=== PATIENT | female | born 1940 | race Caucasian/White ===

== ENCOUNTER 2019-11-04 09:00 | Outpatient (CLI) | payer OTHER, SELFPAY ==
--- NOTE | 2019-11-09 11:43 | SLEEP_ITS ---
Home sleep test. DATE OF STUDY: 11/04/2019 ORDERING PHYSICIAN: Elijah Wilkins D.O. REASON FOR THE STUDY: Obstructive sleep apnea syndrome. HISTORY: This patient is a 79-year-old female, 5 feet tall, weighing 160 pounds with a body mass index of 31.2. She has atrial fibrillation. The patient has constant snoring that is occasionally loud enough that others complain about. She frequently awakens at night with heartburn, belching, or coughing. She occasionally awakens from sleep feeling short of breath. She frequently has trouble sleeping with a cold. She does not gasp for breath at night. She occasionally has breathing problems witnessed by others and occasionally sweats excessively at night. She frequently notices her heart pounding or beating irregularly at night. She frequently falls asleep during the day, but never involuntarily, never while driving, never during physical effort or with laughing or crying. She does not have loss of muscle tone with strong emotion. She does not have daytime difficulty due to excessive sleepiness. She is currently retired. She does not feel paralyzed on waking or falling asleep nor does she have vivid dreamlike scenes upon awakening or falling asleep. She is never afraid to go to sleep. She rarely has nightmares. She occasionally remembers her dreams. She frequently has racing thoughts. She does not feel sad or depressed. She rarely has anxiety. She frequently has muscular tension and notices parts of her body jerking. She rarely kicks at night. She frequently has crawling and aching feelings in her legs and has leg pain during the night. She never has morning jaw pain. She occasionally grinds her teeth at night. She frequently is bothered by pain during the day. She rarely is awakened by pain during the night. She constantly wakes up feeling stiff in the morning frequently with sore achy muscles and neck and spine pain. She has dizziness, fatigue, bowel disturbances, and takes antacids regularly. Bedtime is 9:30 p.m., typically waking 3 or 4 times at night to go to the bathroom and then has difficulty falling asleep again. If this happens, she will read a book or clean her house. She wakes in the morning at 6 a.m. Weekend schedule is the same. She estimates anywhere between 4 and 6 hours of sleep at night. If she does awaken at night, she will typically take 30-40 minutes to fall asleep again. Her excessive sleepiness does cause her to cut back on her social activities. She does take naps. A short nap can be refreshing. MEDICAL COMORBIDITIES: Arthritis, hypothyroidism, diabetes with retinopathy, seasonal allergies, bronchitis, gastroesophageal reflux disease, atrial fibrillation with rapid ventricular response, hyperlipidemia, pulmonary hypertension. MEDICATIONS: 1. Levothyroxine 50 mcg daily. 2. Albuterol inhaler p.r.n. shortness of breath. 3. Vitamin C 250 mg a day. 4. Azelastine 137 mcg 1 spray each nostril q.12 hours. 5. Vitamin D3 1000 units daily. 6. Coenzyme Q, 1 capsule daily. 7. Lasix 40 mg daily. 8. Aspart insulin as directed.. 9. Turmeric 450 mg daily. 10. Rivaroxaban 20 mg BID 11. Metformin 1000 mg daily. 12. Milk thistle, 1 capsule daily. 13. Multivitamin 1 daily. 14. Laporte-3 fatty acid 1 daily. HABITS: Smoked tobacco years ago. Two cups of coffee a day. No alcohol. DESCRIPTION OF THE STUDY: On the [place] Sleepiness Scale, is 7. This was conducted as an unattended type 3 portable home sleep test with 4-channel monitoring including respiratory effort channel, snoring channel, oxygen saturation channel, and heart rate channel. This study was scored using [facility] guidelines. Duration of the study was 8 hours 24 minutes. The apnea-hypopnea index is 14. Oxygen desaturation index
== END 2019-11-04 09:01 | disposition home or self-care (01) ==
LOC: ANHCSM 09:04
PROVIDERS: PCP Family Medicine; Visit Provider Internal Medicine Cardiovascular Disease
DX: G47.33 Obstructive sleep apnea (adult) (pediatric) (principal)
CPT/HCPCS: 95806

== ENCOUNTER 2019-11-11 08:18 | Outpatient (CLI) | payer OTHER, SELFPAY ==
--- NOTE | ~2019-11-11 | NM_ITS ---
EXAMINATION: NM duc stress w perfusion DATE: 11/11/2019 12:10 INDICATION: Chest pain TECHNIQUE: Rest images were obtained following intravenous administration of 9.8 mCi Tc99m tetrofosmi n (Myoview). The patient was infused intravenously with Lexiscan (Regadenoson). Then, 29.1 mCi Tc99m tetrofosmin (Myoview) was administered intravenously, and stress images were obtained. Data was recon structed into short axis and horizontal and vertical long axis SPECT images. Gated SPECT images were also obtained. COMPARISON: None. FINDINGS: There is no definite reversible or fixed perfusion abnormality to suggest ischemia or infar ction. There is normal left ventricular chamber size, wall motion and ejection fraction. Left ventr icular ejection fraction measures 62%. IMPRESSION: 1. Normal myocardial perfusion at rest and during stress. 2. Left ventricular ejection fraction measuring 62%. Reviewed, dictated and finalized at location A.
--- NOTE | 2019-11-11 09:41 | EST_ITS ---
Patient Info Name: Selina Fishman Age: 79 years : 1940 Gender: Female Ht: 60 in Wt: 163 lbs BSA: 1.80 m2 Exam Date: 11/11/2019 9:58 AM Exam Location: [facility] Stress Patient Status: Outpatient Admit Date: 11/11/2019 Staff Ordering Physician: Elijah Wilkins DO Attending Provider: Elijah Wilkins DO Exercise Technologist: Justyn Cornell RDCS, RT Exercise Physician: Elijah Wilkins DO Exam Type: CA stress duc w NM Study Info A regadenoson stress test was performed. Summary 1. 1. Inconclusive lexiscan stress test for ischemic ST changes by ECG criteria due to baseline LBBB. 2. 2. Baseline hypertension. 3. 3. Nuclear scan to follow and will be reported separately. Please correlate with it. 4. 4. Patient informed of the above results. Protocol: Lexiscan Stress ECG Details Stage: REST Duration (min): 5 min : 9 sec HR (bpm): 60 SBP (mmHg): 175 DBP (mmHg): 81 Stage: REST Duration (min): 6 min : 17 sec HR (bpm): 62 SBP (mmHg): 175 DBP (mmHg): 81 Stage: STAGE 1 Duration (min): 1 min : 0 sec HR (bpm): 69 SBP (mmHg): 177 DBP (mmHg): 65 Stage: RECOVERY Duration (min): 1 min : 0 sec HR (bpm): 75 SBP (mmHg): 177 DBP (mmHg): 65 Stage: RECOVERY Duration (min): 2 min : 0 sec HR (bpm): 74 SBP (mmHg): 177 DBP (mmHg): 65 Stage: RECOVERY Duration (min): 3 min : 0 sec HR (bpm): 72 SBP (mmHg): 177 DBP (mmHg): 65 Stage: RECOVERY Duration (min): 3 min : 24 sec HR (bpm): 71 SBP (mmHg): 175 DBP (mmHg): 65 Rest HR: 62 bpm Peak HR: 76 bpm Rest Sys BP: 175 mmHg Peak Sys BP: 177 mmHg Max Pred HR: 142 bpm % Max Pred HR: 54 % Target HR: 121 bpm Max RPP: 13,452 bpm*mmHg Termination Reason: Completed protocol Cardiac Symptoms: Shortness of breath Total Time: 1 min : 0 sec Rest Rodriguez BP: 81 mmHg Peak Rodriguez BP: 65 mmHg Total Dose: 0.4 mg Resting ECG Sinus rhtyhm with LBBB. Stress ECG No ST changes. Arrhythmias None. Report Signatures
== END 2019-11-11 08:19 | disposition home or self-care (01) ==
PROVIDERS: PCP Family Medicine; Visit Provider Internal Medicine Cardiovascular Disease
DX: R07.9 Chest pain, unspecified (principal)
CPT/HCPCS: 78452; 93017; A9502; J2785

== ENCOUNTER 2020-01-25 15:23 | Outpatient (CLI) | payer OTHER, SELFPAY ==
--- NOTE | ~2020-01-25 | CT_ITS ---
EXAMINATION: CT abdomen pelvis w con EXAM DATE: 01/25/2020 16:19 INDICATION: Left lower quadrant pain. TECHNIQUE: Spiral CT of the abdomen and pelvis was performed following intravenous injection of 100 m L Omnipaque 350. Axial, coronal and sagittal images were reviewed. The dose-length product (DLP) fo r this examination was 900.34 mGy-cm. The exposure was tailored according to patient size (auto mA e xposure control), and iterative reconstruction (ASIR) was used as additional dose reduction technique . Comparison is made to prior examination from 01/06/2018. FINDINGS: There is a left adrenal lesion measuring 4.1 cm with small regions of macroscopic fat, cons istent with myelolipoma unchanged. Liver, spleen, right adrenal gland, pancreas are unremarkable. Th ere are cholecystectomy clips. Portal and splenic veins are patent. Kidneys enhance symmetrically. There is no hydronephrosis. There is a 4 mm right inferior calyceal stone. The uterus is not identi fied and has likely been surgically resected. The bladder is unremarkable. There is no retroperiton eal or pelvic lymphadenopathy. There is mild scattered arteriosclerotic disease. There is anterior abdominal wall mesh. The appendix is not positively visualized. There is no pericecal inflammatory change to suggest appe ndicitis. The stomach and small bowel are unremarkable. There is mild sigmoid colonic diverticulosi s. There is no adjacent inflammatory change to suggest diverticulitis. No free intraperitoneal gas. There is cardiomegaly and mild basilar bronchiectasis. Mild basilar intralobular septal thickening , edema versus interstitial lung disease. This is more pronounced than on previous exam. There are n o osteoblastic or osteolytic lesions identified. IMPRESSION: 1. No acute intra-abdominal findings. 2. Left adrenal myelolipoma. 3. Right nephrolithiasis. 4. Mild sigmoid diverticulosis. 5. Mild cardiomegaly. 6. Mild basilar fibrosis and/or pulmonary edema. Reviewed, dictated and finalized at location A.
[2020-01-25 16:13] LABS: Estimated Glomerular Filt Rate > 60
== END 2020-01-25 15:24 | disposition home or self-care (01) ==
PROVIDERS: PCP Family Medicine; Visit Provider Family Medicine
DX: R10.32 Left lower quadrant pain (principal); D17.79 Benign lipomatous neoplasm of other sites; N20.0 Calculus of kidney; K57.90 Diverticulosis of intestine, part unspecified, without perforation or abscess without bleeding; I51.7 Cardiomegaly; R91.8 Other nonspecific abnormal finding of lung field
CPT/HCPCS: 36415; 74177; Q9967

== ENCOUNTER 2020-05-03 00:45 | Outpatient (CLI) | payer OTHER, SELFPAY ==
[2020-05-03 17:26] LABS: SARS-CoV-2 RNA PCR Negative
== END 2020-05-03 00:46 | disposition home or self-care (01) ==
LOC: ANHCOVIDDT 00:45
PROVIDERS: PCP Family Medicine; Visit Provider Internal Medicine Critical Care Medicine
DX: Z20.828 Contact with and (suspected) exposure to other viral communicable diseases (principal)
CPT/HCPCS: 87635; C9803; U0003

== ENCOUNTER 2020-05-05 07:07 | Outpatient (CLI) | payer OTHER, SELFPAY ==
--- NOTE | 2020-05-22 21:12 | WPDSLEEPSTUD ---
Sleep Study Date of Study: 05/05/20 Ordering Provider: Elijah Wilkins DO Interpreting Physician: Rosangela Woods MD Sleep Study Type: CPAP Titration Height: 1.52 m Weight: 72.575 kg Body Mass Index: 31.2 [place]: 9 Reason for Sleep Study Prior home sleep test 11/04/2019 with moderate obstructive sleep apnea Sleep History Sleep complaints include constant snoring that is occasionally loud enough that others complain about; she frequently awakens at night with heartburn, belching, and coughing. She occasionally awakens from sleep feeling short of breath, frequently has trouble sleeping with a cold. She does not gasp for breath at night. She occasionally has breathing problems witnessed by others and occasionally sweats excessively at night. She frequently notices her heart pounding or beating irregularly at night. She frequently falls asleep during the day, but never involuntarily, never while driving, never during physical effort or with laughing or crying. She does not have loss of muscle tone with strong emotion. She does not have daytime difficulty due to excessive sleepiness. She is currently retired. She does not feel paralyzed on waking or falling asleep nor does she have vivid dreamlike scenes upon awakening or falling asleep. She is never afraid to go to sleep; rarely has nightmares. She occasionally remembers her dreams. She frequently has racing thoughts. She does not feel sad or depressed. She rarely has anxiety. She frequently has muscular tension and notices parts of her body jerking. She rarely kicks at night. She frequently has crawling and aching feelings in her legs and has leg pain during the night. She never has morning jaw pain. She occasionally grinds her teeth at night. She frequently is bothered by pain during the day. She rarely is awakened by pain during the night. She constantly wakes up feeling stiff in the morning frequently with sore achy muscles and neck and spine pain. She has dizziness, fatigue, bowel disturbances, and takes antacids regularly. Bedtime is 9:30 p.m., typically waking 3 or 4 times at night to go to the bathroom and then has difficulty falling asleep again. If this happens, she will read a book or clean her house. She wakes in the morning at 6 a.m. Weekend schedule is the same. She estimates anywhere between 4 and 6 hours of sleep at night. If she does awaken at night, she will typically take 30-40 minutes to fall asleep again. Her excessive sleepiness does cause her to cut back on her social activities. She does take naps. A short nap can be refreshing. Habits: Smoked tobacco years ago. Two cups of coffee a day. No alcohol. PMFSH Past Medical History Medical History Adult hypothyroidism Atherosclerosis of [place] coronary artery of creek heart without angina pectoris Atrial fibrillation with RVR Essential (primary) hypertension Insulin long-term use Lumbar spondylosis Macular degeneration, dry Mild nonproliferative diabetic retinopathy of both eyes Mitral regurgitation and aortic stenosis Mixed hyperlipidemia AUTUMN (obstructive sleep apnea) Proteinuria due to type 2 diabetes mellitus Pulmonary HTN Type 2 diabetes mellitus with diabetic polyneuropathy Surgical History Surgical History History of fusion of cervical spine History of hysterectomy History of lumbar fusion History of tonsillectomy Family History Family History Mother Family history of transient ischemic attacks Family history of diabetes mellitus in first degree relative Patient's mother is Sibling Family history of lymphoma Family history of congestive heart failure, Onset Age: 40 Family history of heart disease in male family member before age 55 Social History Social History Smoking
[2020-05-22 22:37] VITALS: BMI 31.2
== END 2020-05-05 07:08 | disposition home or self-care (01) ==
LOC: ANHCSM 07:08
PROVIDERS: PCP Family Medicine; Visit Provider Internal Medicine Cardiovascular Disease
DX: G47.33 Obstructive sleep apnea (adult) (pediatric) (principal); I47.1 Supraventricular tachycardia; Z68.31 Body mass index [BMI] 31.0-31.9, adult
CPT/HCPCS: 95811

== ENCOUNTER 2020-06-22 14:30 | Outpatient (RCR) | payer OTHER, SELFPAY ==
[2020-04-19 08:04] VITALS: BMI 29.4
== END 2020-07-04 14:04 | disposition home or self-care (01) ==
LOC: ANHDMC 14:30
PROVIDERS: PCP Family Medicine; Visit Provider Family Medicine
DX: E11.42 Type 2 diabetes mellitus with diabetic polyneuropathy (principal); E11.65 Type 2 diabetes mellitus with hyperglycemia; Z71.3 Dietary counseling and surveillance; Z71.89 Other specified counseling
CPT/HCPCS: 97802; G0108; G0109

== ENCOUNTER 2020-10-17 10:15 | Outpatient (RCR) | payer OTHER, SELFPAY | END 2020-10-18 07:58 | disposition home or self-care (01) | LOC: ANHDMC 10:15 | PROVIDERS: PCP Family Medicine; Visit Provider Family Medicine | DX: E11.42 Type 2 diabetes mellitus with diabetic polyneuropathy (principal); E11.65 Type 2 diabetes mellitus with hyperglycemia; Z71.89 Other specified counseling | CPT/HCPCS: G0108; G0109 ==

== ENCOUNTER → 2020-10-21 09:45 | Outpatient (CLI) | payer OTHER, SELFPAY ==
[2020-10-22 19:48] LABS: SARS-CoV-2 RNA PCR Negative
== END ==
PROVIDERS: PCP Family Medicine; Visit Provider Physician Assistant
DX: R68.89 Other general symptoms and signs (principal); Z20.822 Contact with and (suspected) exposure to COVID-19
CPT/HCPCS: C9803; U0003; U0005

== ENCOUNTER 2020-12-05 11:00 | Outpatient (RCR) | payer OTHER, SELFPAY ==
--- NOTE | 2020-11-04 09:32 | PTOPEVAL ---
Thank you for referring Selina Fishman to [facility].? The patient is scheduled to be seen for therapy? 2x/week for 5 weeks. Please review, sign, date and return this plan of care ERICA. I agree with and certify that the following plan of care is medically necessary. Referring Physician Date Attending Provider: Sharad Ram MD Physical Therapy evaluation Problem Diagnosis left knee pain Onset Aug 2020 Cause progression of OA Additional Evaluation Detail She had a fall in Sep in the snow. She reports balance issues for a long time. She has nevere been treated for the balance issue. She reports 4 falls in the last 6 months. The falls will happen with turning and others are a controlled fall using an object to assist with the fall . Subjective Information She reports her left knee pain Query Text:As Reported By Patient/ increased in Aug for unknown Family reason. She has increased pain and difficulty with any walking, distance walking, negotiating steps, ADL's, precision lathe operator, on/off any surfaces. Notes pain to sharp on the medial/inferior aspect. As well as ache pain. She reports her pain level varies each day. She c/o swelling of the knee with prolonged standing or standing activities. She will have times without pain when seated watching TV. She has been using a cane at home and community with improved pain. She was performing home exercise videos but stopped in Jul due to overall body pain with the program. She was performing a [employer] program but stopped due to not feeling well. Diagnostic Tests X-Rays For This Problem Yes: mild medial joint space narrowing with peripheral spur formation, Previous Treatments Previous Treatments For This Problem nothing recently Pain Assessment
--- NOTE | 2020-11-08 15:31 | PCPTNOTE ---
Patient showed up for apt this date. When approached to come back to gym, patient informed therapist she does not feel well today and notes she received her 2nd covid shot yesterday and has no energy. Patient looked pale and like she did not feel well. Cancelled apt this date to allow patient to rest and for patient safety purposes. Re issued patient exercise handouts as she reported she lost them.
--- NOTE | 2020-12-05 11:47 | PCPTNOTE ---
Admitting Provider: Attending Provider: Sharad Ram MD Patient:Selina Fishman Date of :1940 Discharge Note Patient has attended 9 therapy visits from 11/04/20 to 12/05/20 with 1 missed visits. She has improved knee motion to 130 deg, improved nadine leg strength, improved tolerance with walking and standing. She is indep with her home exercise at this time. The goals have been partially met at this time. She has reached maximal potential with skilled therapy services at this time. Will D/C skilled therapy at this time. Thank you for referring this patient to [facility]. Please review, sign, date and return this discharge summary ERICA. I have been updated about the patient's current status and I agree with discharge from the above service at this time. Referring Physician Date
== END 2020-12-06 08:12 | disposition home or self-care (01) ==
LOC: ANHPT 11:00
PROVIDERS: PCP Family Medicine; Visit Provider Orthopaedic Surgery
DX: M17.12 Unilateral primary osteoarthritis, left knee (principal)
CPT/HCPCS: 97110; 97116; 97162

== ENCOUNTER 2020-12-23 11:02 | Emergency (ER) | payer OTHER, SELFPAY ==
[2020-12-23] VITALS (20 sets, daily range): BP systolic 145–185; BP diastolic 59–128; PULSE 66–88; RESP 12–25; TEMP 36.2; O2SAT 93–96
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
--- NOTE | ~2020-12-23 | XR_ITS ---
EXAMINATION: XR chest 1V INDICATION: Chest pain TECHNIQUE: AP view of the chest is obtained. COMPARISON: 09/24/2016 FINDINGS: The lungs are free of acute opacities. There is no pleural effusion or pneumothorax. Cardio megaly is noted. IMPRESSION: 1. No acute cardiopulmonary abnormality. Reviewed, dictated and finalized at location A.
--- NOTE | ~2020-12-23 | CT_ITS ---
EXAMINATION: CT brain wo con INDICATION: Headache COMPARISON: None TECHNIQUE: Standard unenhanced head CT. The dose-length product (DLP) was 605.33 mGy-cm. The mA was a djusted according to patient size. Iterative reconstruction technique was employed. FINDINGS: There is no acute intraparenchymal hemorrhage. No evidence of mass lesion. No evidence of a cute infarction. There is mild periventricular and subcortical hypodensity probably related to small vessel ischemic disease. There is mild prominence of the sulci and ventricles related to cerebral atr ophy. Intracranial calcified cerebral atherosclerosis is noted. There are no extra-axial collections. There is no mass effect or midline shift. Changes in the globes are likely from ocular lens surgery. There is mild mucosal thickening of the paranasal sinuses. IMPRESSION: 1. No acute intracranial abnormality. 2. Age related findings. Reviewed, dictated and finalized at location A.
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
[2020-12-23 12:10] LABS: Basophils Percent Auto 0.3 % (0.2-1.2); Eosinophils Absolute Auto 0.1 K/mm3 (0-0.3); Eosinophils Percent Auto 0.4 % (0-4.4); Hematocrit 44.6 % (37.0-47.0); Hemoglobin 15.1 g/dL (12.0-15.0); Immature Granulocyte Absolute 0.07 K/mm3 (0.00-0.031); Immature Granulocyte Percent A 0.6 % (0-0.5); Lymphocytes Absolute Auto 1.57 K/mm3 (0.9-3.2); Lymphocytes Percent Auto 13.6 % (18.3-44.2); Mean Corpuscular HGB Conc 33.9 g/dl (32-36); Mean Corpuscular Hemoglobin 30.1 pg (26-34); Mean Corpuscular Volume 88.8 fl (80-100); Mean Platelet Volume 10.7 fl (7.4-10.4); Monocytes Absolute Auto 0.7 K/mm3 (0.1-0.6); Monocytes Percent Auto 6.2 % (2.6-8.5); Neutrophils Absolute Auto 9.1 K/mm3 (1.3-6.7); Neutrophils Percent Auto 78.9 % (45.5-73.1); Platelet Count Result 307 k/mm3 (150-375); Red Blood Count 5.02 M/mm3 (4.2-5.4); Red Cell Distribution Width 13.1 % (11.5-14.5); White Blood Count 11.6 K/mm3 (4.5-10.0)
[2020-12-23 12:15] LABS: Potassium 3.2 mmol/L (3.4-5.0)
[2020-12-23 12:22] LABS: Anion Gap 9 mmol/L (8-16); Blood Urea Nitrogen 14 mg/dL (7-17); Carbon Dioxide 29 mmol/L (22-30); Chloride 96 mmol/L (98-107); Estimated CRCL calculation 61 ml/min; Estimated Glomerular Filt Rate > 60; Glucose 478 mg/dL (65-105); Sodium 134 mmol/L (137-145)
[2020-12-23 13:19] LABS: Add Urine Microscopic? YES; Appearance Urine Clear (Clear); Bilirubin Urine Negative (Negative); Blood Urine Negative (Negative); Color Urine Yellow (Yellow); Glucose Urine UA 3+ mg/dL (Negative); Ketones Urine 1+ mg/dL (Negative); Leukocyte Esterase Ur Negative LEU/UL (Negative); Nitrate Urine Negative (Negative); Protein Urine Negative (Negative); Squamous Epithelial Cell Urine Rare /hpf (Few); Urobilinogen Urine Negative mg/dL (<2.0)
[2020-12-23] MEDS: SODIUM CHLORIDE 0.9% IV 1,000 ML 999 ML IV CONT (13:19)
[2020-12-23 13:20] LABS: Specific Grav Ur 1.033 (1.001-1.035)
[2020-12-23] MEDS: INSULIN HUMAN REGULAR (*BKC) 100 UNITS/ML 12 UNITS SUB-Q (14:19)
[2020-12-23 14:24] LABS: Glucose Point of Care 442 (65-105)
[2020-12-23 15:44] LABS: Glucose Point of Care 425 (65-105)
== END 2020-12-23 14:57 | disposition home or self-care (01) ==
PROVIDERS: Emergency Medicine Emergency Medical Services; Emergency Provider Emergency Medicine; PCP Family Medicine
DX: S00.83XA Contusion of other part of head, initial encounter (principal); E11.65 Type 2 diabetes mellitus with hyperglycemia; E11.42 Type 2 diabetes mellitus with diabetic polyneuropathy; E11.3293 Type 2 diabetes mellitus with mild nonproliferative diabetic retinopathy without macular edema, bilateral; H35.3190 Nonexudative age-related macular degeneration, unspecified eye, stage unspecified; I48.91 Unspecified atrial fibrillation; I25.10 Atherosclerotic heart disease of native coronary artery without angina pectoris; I10 Essential (primary) hypertension; I08.0 Rheumatic disorders of both mitral and aortic valves; E78.2 Mixed hyperlipidemia; E03.9 Hypothyroidism, unspecified; G47.33 Obstructive sleep apnea (adult) (pediatric); M17.12 Unilateral primary osteoarthritis, left knee; I27.20 Pulmonary hypertension, unspecified; Z79.4 Long term (current) use of insulin; Z79.01 Long term (current) use of anticoagulants; M47.812 Spondylosis without myelopathy or radiculopathy, cervical region; V49.50XA Passenger injured in collision with unspecified motor vehicles in traffic accident, initial encounter; R82.998 Other abnormal findings in urine
CPT/HCPCS: 36415; 70450; 71045; 72125; 80048; 81001; 82948; 85025; 87086; 87088; 96360; 99284; J1815; J7030

== ENCOUNTER 2021-06-03 16:23 | Emergency (ER) | payer OTHER, SELFPAY ==
--- NOTE | ~2021-06-03 | CT_ITS ---
EXAMINATION: CT brain wo con DATE: 06/03/2021 18:45 INDICATION: Confusion. Agitation. TECHNIQUE: Computed tomography (CT) of the head was performed without intravenous contrast. The mA wa s adjusted according to patient size. Iterative reconstruction technique was employed. The dose-lengt h product was 605.33 mGy-cm. COMPARISON: Head CT 12/23/2020 FINDINGS: There are scattered areas of low attenuation in the cerebral white matter. There is no intr acranial hemorrhage, acute infarction, or abnormal intracranial mass lesion. There are old lacunar in farcts in the bilateral caudate nuclei. The ventricles are normal in size. There is mild mucosal thic kening in the paranasal sinuses. There are likely changes of ocular lens replacement surgeries. The m astoid air cells are normal. IMPRESSION: 1. 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 2. Stable moderate nonspecific cerebral white matter disease, which likely represents chronic small v essel ischemic disease. Reviewed, dictated and finalized at location A. IMPRESSION: 1. 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 2. Stable moderate nonspecific cerebral white matter disease, which likely repr esents chronic small vessel ischemic disease.
--- NOTE | 2021-06-03 16:25 | ECG_ITS ---
Measurements Intervals Amonate Rate: 86 P: 86 [place]: 193 QRS: -41 QRSD: 122 T: 138 QT: 388 QTc: 467 Interpretive Statements SINUS RHYTHM LEFT AXIS DEVIATION INTRAVENTRICULAR CONDUCTION DELAY LEFT VENTRICULAR HYPERTROPHY AND ST-T CHANGE ANTEROSEPTAL INFARCT, AGE INDETERMINATE BASELINE ARTIFACT- I, II, AVR ABNORMAL ECG Electronically Signed On 06-03-2021 17:51:45 CDT by Elijah Wilkins D.O.
--- NOTE | 2021-06-03 16:31 | ED.AMS ---
HPI - Altered Mental Status General Chief Complaint: Altered Mental Status Stated Complaint: AMS - onset Time Seen by Provider: 06/03/21 16:30 Source: patient, family and RN notes reviewed Mode of arrival: ambulatory Limitations: no limitations History of Present Illness HPI narrative: Patient 80 years old white female brought to the emergency by her daughter because of sudden onset of confusion and agitation lasted for few minutes and then resolved. Patient had similar symptoms 2 to 3 weeks ago. Currently patient is awake, alert and oriented x4, denying any symptoms. Patient denies any fever, chills, nausea, vomiting, diarrhea, constipation, abdominal pain, chest pain, shortness of breath, headache. Patient is fully vaccinated for COVID-19. Related Data Home Medications Medication Instructions Recorded Confirmed omega-3 fatty acids 1,000 mg 2,000 mg PO DAILY cap 01/13/21 05/19/21 capsule cetirizine 10 mg tablet 10 mg PO DAILY PRN 04/13/21 05/19/21 fluticasone propionate 50 1 spray INTRANASAL BID 04/13/21 05/19/21 mcg/actuation nasal spray,suspension Allergies Allergy/AdvReac Type Severity Reaction Status Date / Time codeine Allergy Unknown hives Verified 06/03/21 16:57 gabapentin Allergy Unknown rash Verified 06/03/21 16:57 meperidine Allergy Unknown hives Verified 06/03/21 16:57 Quinolones Allergy Unknown N/V Verified 06/03/21 16:57 Sulfa (Sulfonamide Allergy Unknown Unknown Verified 06/03/21 16:57 Antibiotics) Review of Systems Review of Systems: CONSTITUTIONAL: Denies fever, chills, or sweats. EYES: Denies visual changes, redness, or discharge. ENT: Denies rhinorrhea, congestion, sore throat, or otalgia. CARDIOVASCULAR: Denies chest pain, palpitations, or edema. RESPIRATORY: Denies cough or dyspnea. GASTROINTESTINAL: Denies abdominal pain, nausea, vomiting, or diarrhea. GENITOURINARY: Denies dysuria or hematuria. SKIN: Denies rash or itching. MUSCULOSKELETAL: Denies back pain, joint pain, or myalgia. NEUROLOGIC: Denies headache, numbness, or weakness. PSYCHIATRIC: Denies anxiety or depression. [facility] Past Medical History Medical History Adult hypothyroidism Atherosclerosis of [place] coronary artery of [place] heart without angina pectoris Atrial fibrillation with RVR Diastolic dysfunction Essential (primary) hypertension Hemoglobin A1c greater than 9.0% over august 2020 History of tobacco abuse Insulin long-term use Lumbar spondylosis Macular degeneration, dry Major depressive disorder, single episode, moderate Mild nonproliferative diabetic retinopathy of both eyes Mitral regurgitation and aortic stenosis Mixed hyperlipidemia Myelolipoma of left adrenal gland AUTUMN (obstructive sleep apnea) (~10/2019) Osteoarthritis of left knee Proteinuria due to type 2 diabetes mellitus Pulmonary HTN Recurrent kidney stones Type 2 diabetes mellitus with diabetic polyneuropathy Surgical History Surgical History History of fusion of cervical spine History of hysterectomy History of lumbar fusion History of tonsillectomy Family History Family History Mother Family history of transient ischemic attacks Family history of diabetes mellitus in first degree relative Patient's mother is Sibling Family history of lymphoma Family history of congestive heart failure, Onset Age: 40 Family history of heart disease in male family member before age 55 Social History Social History Social History: Smoking packs per day: 1 Smoking cigarettes per day: 20.0 Years smoked: 16 Smoking pack-years: 16.00 Smoking status: Former smoker Tobacco type: cigarettes Second hand tobacco smoke exposure: No Smoking end date: 08/19/75 Alcohol intake: never Substance use: never
[2021-06-03 16:41] LABS: Basophils Percent Auto 0.4 % (0.2-1.2); Eosinophils Absolute Auto 0.1 K/mm3 (0-0.3); Eosinophils Percent Auto 1.1 % (0-4.4); Hematocrit 47.5 % (37.0-47.0); Hemoglobin 15.9 g/dL (12.0-15.0); Immature Granulocyte Absolute 0.06 K/mm3 (0.00-0.031); Immature Granulocyte Percent A 0.5 % (0-0.5); Lymphocytes Absolute Auto 3.31 K/mm3 (0.9-3.2); Lymphocytes Percent Auto 29.3 % (18.3-44.2); Mean Corpuscular HGB Conc 33.5 g/dl (32-36); Mean Corpuscular Hemoglobin 30.3 pg (26-34); Mean Corpuscular Volume 90.6 fl (80-100); Mean Platelet Volume 10.6 fl (7.4-10.4); Monocytes Absolute Auto 0.7 K/mm3 (0.1-0.6); Monocytes Percent Auto 5.9 % (2.6-8.5); Neutrophils Absolute Auto 7.1 K/mm3 (1.3-6.7); Neutrophils Percent Auto 62.8 % (45.5-73.1); Platelet Count Result 340 k/mm3 (150-375); Red Blood Count 5.24 M/mm3 (4.2-5.4); White Blood Count 11.3 K/mm3 (4.5-10.0)
[2021-06-03 16:42] VITALS: BP 177/106; PULSE 86; RESP 14; TEMP 36.3; O2SAT 99
[2021-06-03 17:14] LABS: Alanine Aminotransferase 17 U/L (4-35); Albumin Level 4.6 g/dL (3.5-5.1); Alkaline Phosphatase 78 U/L (38-126); Anion Gap 14 mmol/L (8-16); Aspartate Amino Transferase 22 U/L (14-36); Bilirubin,Total 0.4 mg/dL (0.2-1.3); Blood Urea Nitrogen 10 mg/dL (7-17); Calcium 9.5 mg/dL (8.4-10.2); Carbon Dioxide 27 mmol/L (22-30); Chloride 94 mmol/L (98-107); Estimated CRCL calculation 70 ml/min; Estimated Glomerular Filt Rate > 60; Glucose 453 mg/dL (65-110); Sodium 135 mmol/L (137-145)
[2021-06-03 17:18] VITALS: BP 121/99; PULSE 77; RESP 14; O2SAT 97
[2021-06-03 17:41] LABS: Add Urine Microscopic? YES; Appearance Urine Clear (Clear); Bacteria Urine Trace /hpf; Bilirubin Urine Negative (Negative); Blood Urine Negative (Negative); Color Urine Colorless (Yellow); Glucose Urine UA 3+ mg/dL (Negative); Ketones Urine Trace mg/dL (Negative); Leukocyte Esterase Ur Negative LEU/UL (Negative); Mucus Urine Rare /lpf; Nitrate Urine Negative (Negative); Protein Urine Negative (Negative); Squamous Epithelial Cell Urine Rare /hpf (Few); Urobilinogen Urine Negative mg/dL (<2.0); WBC Urine 0-3 /hpf
[2021-06-03 18:42] VITALS: BP 139/110; PULSE 73; RESP 16; O2SAT 97
[2021-06-03] MEDS: POTASSIUM CHLORIDE 20 MEQ PACKET (FOR LIQUID) 40 MEQ PO (18:52)
[2021-06-03] MEDS: SODIUM CHLORIDE 0.9% IV 1,000 ML 999 ML IV CONT (18:53)
[2021-06-03 19:01] LABS: Magnesium 1.6 mg/dL (1.6-2.3); Phosphorus 3.3 mg/dL (2.5-4.5)
[2021-06-03 19:01] LABS: Alveolar/Arterial O2 Gradient 32.5 mmHg; Base Excess ABG 1.1 mEq/l (+/-2.0); Carboxyhemoglobin 0.9 % THb (0-2.0); Fractional Inspired Oxygen 21 %; HCO3 ABG 23.4 mEq/l (22.0-26.0); Methemoglobin ABG 0.2 %THb (0-1.5); Oxygen Content ABG 19.1 %vol (16.0-22.0); Oxygen Saturation ABG 96.8 % (95.0-100.0); Oxyhemoglobin 94.8 % THb (90.0-100.0); PCO2 ABG 30.9 mmHg (35.0-45.0); PO2 ABG 80.2 mmHg (80.0-100.0); PO2 FiO2 Ratio Arterial Blood 3.82 %; Reduced Hemoglobin 4.1 %THb (0-5.0); Total Hemoglobin 14.3 g/dL (12.0-18.0); pH ABG 7.498 (7.350-7.450)
[2021-06-03 19:02] LABS: Device ROOM AIR; Modified Allen's Test Pass; Site Drawn RIGHT RADIAL
[2021-06-03 19:06] LABS: Beta-Hydroxybutyrate/Acetoacetate 0.36 mmol/L (0.02-0.27)
[2021-06-03] MEDS: INSULIN HUMAN REGULAR (*BKC) 100 UNITS/ML 10 UNITS IV PUSH (20:31)
[2021-06-03 20:32] VITALS: BP 187/85; PULSE 85; RESP 22; O2SAT 99
[2021-06-03 21:09] LABS: Glucose Point of Care 219 mg/dl (65-105)
--- NOTE | 2021-06-14 10:53 | PC.NURSE ---
LATE ENTRY This note is being entered to document information to the patient's record. The following information was omitted on [06/03/21], by [Michele Smith RN]. NS stop time 1954.
== END 2021-06-03 22:01 | disposition home or self-care (01) ==
PROVIDERS: Emergency Medicine; Emergency Provider Emergency Medicine; PCP Family Medicine
DX: E11.65 Type 2 diabetes mellitus with hyperglycemia (principal); E87.6 Hypokalemia; I25.10 Atherosclerotic heart disease of native coronary artery without angina pectoris; I11.0 Hypertensive heart disease with heart failure; I50.30 Unspecified diastolic (congestive) heart failure; I08.0 Rheumatic disorders of both mitral and aortic valves; E78.2 Mixed hyperlipidemia; I27.20 Pulmonary hypertension, unspecified; Z87.442 Personal history of urinary calculi; E11.42 Type 2 diabetes mellitus with diabetic polyneuropathy; H35.3190 Nonexudative age-related macular degeneration, unspecified eye, stage unspecified; E03.9 Hypothyroidism, unspecified; G47.33 Obstructive sleep apnea (adult) (pediatric); M17.12 Unilateral primary osteoarthritis, left knee; Z98.1 Arthrodesis status; Z87.891 Personal history of nicotine dependence; Z79.4 Long term (current) use of insulin; R90.82 White matter disease, unspecified; I45.9 Conduction disorder, unspecified; R94.31 Abnormal electrocardiogram [ECG] [EKG]; I51.7 Cardiomegaly
CPT/HCPCS: 36415; 36600; 70450; 80053; 81001; 82010; 82375; 82805; 82948; 83050; 83735; 84100; 85025; 93005; 96361; 96374; 99284; A9270; J1815; J7030

== ENCOUNTER 2021-07-04 14:00 | Outpatient (RCR) | payer OTHER, SELFPAY ==
--- NOTE | 2021-06-01 12:07 | PTOPEVAL ---
INITIAL PHYSICAL THERAPY EVALUATION and PLAN OF CARE Thank you for referring Selina Fishman to [facility] [place].? Selina is scheduled to be seen for physical therapy? 2x/week for 4 weeks. Please review, sign, date and return this plan of care ERICA. I agree with and certify that the following plan of care is medically necessary. Referring Physician Date Admitting Provider: Attending Provider: Nena Garcia PA-C Referring Provider: ThomasPT Outpatient Evaluation Start: 06/01/21 10:33 Freq: Status: Active Protocol: Document 06/01/21 10:34 CARLOS (Rec: 06/01/21 12:06 CARLOS [id number]) Therapy Assessment Status Assessment Status Assessment Status Evaluation Outpatient Past Medical History Past Medical History Source of Past Medical History Recalled from Previous Visit, Confirmed with Patient/Family Neurological History Hx Cerebrovascular Accident (CVA) Yes: 1982 Cardiovascular History Hx Atrial Fibrillation Yes Hx Cardiac Catheterization Yes Hx Hypercholesterolemia Yes Hx Hypertension Yes Respiratory History Hx Bronchitis Yes Hx Chronic Obstructive Pulmonary Disease Yes (COPD) Hx Pneumonia Yes Hx Sleep Apnea Yes Gastrointestinal History Hx Gastroesophageal Reflux Disease Yes Genitourinary History Hx Kidney Stones Yes Musculoskeletal History Hx Arthritis Yes Hx Back Pain Yes Hx Fractures Yes: left elbow fracture Hx Orthopedic Surgery Yes: left elbow Hematological History Hx Hematological Disorders No Significant History Endocrine History Hx Diabetes Yes HEENT History Hx Cataracts Yes Hx Macular Degeneration Yes Hx Sinus Problems Yes Hx Deviated Septum Yes Integumentary History Hx Shingles Yes Psychosocial History Hx Psychiatric Disorders No Significant History Pain History History of Any Previous or Ongoing No Significant History Instance of Pain Anesthesia History Hx Anesthesia Reactions No Significant History Evaluation Information Problem Diagnosis unspecific abnormalities of gait & mobility,chronic pain syndrome,L knee OA Onset ongoing - worsening in March Additional Evaluation Detail evidently increased difficulty getting initial evaluation scheduled Subjective Information Selina reports receiving Query Text:As Reported By Patient/ some relief of L knee pain Family with PT earlier this year.
--- NOTE | 2021-07-04 15:12 | PTOPEVAL ---
PHYSICAL THERAPY DISCHARGE SUMMARY Thank you for referring Selina Fishman to [facility] [place][Note 2].? Selina completed 7 visits in PT. She did meet improved pelvic symmetry, centralization of R LE pain, and L hip flexor flexibility goals but did not meet strength or functional ability goals. She is at end point with PT at this time. She is independent with her HEP and she was encouraged to continue to perform it on a regular basis. I agree with Selina's discharge from PT. Referring Physician Date Admitting Provider: Attending Provider: Nena Garcia PA-C Referring Provider: Therapy Assessment Status Assessment Status Assessment Status Discharge Evaluation Information Problem Diagnosis unspecific abnormalities of gait & mobility,chronic pain syndrome,L knee OA Subjective Information Selina reports that some Query Text:As Reported By Patient/ mornings she wakes up and Family thinks everything is fine. But then once she gets moving around she has increased discomfort. Still limited with shopping distances and time frames. Still avoiding stairs due to pain R buttock and L knee. Selina reports that she feels more limited by her R buttock pain than her L knee pain. Reports doing HEP at home. Pain Assessment Timing of Pain Assessment Timing of Pain Assessment Assessment Pain Scale Pain Scale Used Numeric (1 - 10) Self Report Pain Assessment Right Buttock(s) Reported Pain Level 5 Lowest Pain Intensity 3 Greatest Pain Intensity 8 Pain Aggravating Factors Walking,Weight Bearing/ Standing Left Knee(s) Reported Pain Level 4 Lowest Pain Intensity 3 Greatest Pain Intensity 8 Lower Extremity Muscle Strength Testing Hip Strength Right Hip Flexion Strength 3+ Fair + Hip Extension Strength 4 Good Hip Abduction Strength 3 Fair Hip Medial Rotation Strength 4+ Good + Hip Lateral Rotation Strength 4+ Good + Left Hip Flexion Strength 4- Good - Hip Extension Strength 4 Good Hip Abduction Strength 3+ Fair + Hip Medial Rotation Strength 4+ Good + Hip Lateral Rotation Strength 4 Good Knee Strength Right Knee Flexion Strength 4+ Good + Knee Extension Strength 4+ Good + Left Knee Flexion Strength 4+ Good + Knee Extension Strength 5 Normal Muscle Length Testing Muscle Length Testing Muscle Length Testing C
== END 2021-07-05 11:17 | disposition home or self-care (01) ==
LOC: ANHPT 14:00
PROVIDERS: PCP Family Medicine; Visit Provider Physician Assistant
DX: M17.12 Unilateral primary osteoarthritis, left knee (principal); R26.9 Unspecified abnormalities of gait and mobility; G89.4 Chronic pain syndrome; E11.40 Type 2 diabetes mellitus with diabetic neuropathy, unspecified
CPT/HCPCS: 97110; 97140; 97162

== ENCOUNTER 2021-12-20 15:34 | Outpatient (CLI) | payer OTHER, SELFPAY ==
[2021-12-20 16:10] LABS: Alanine Aminotransferase 11 U/L (4-35); Albumin Level 3.6 g/dL (3.5-5.1); Alkaline Phosphatase 84 U/L (38-126); Anion Gap 6 mmol/L (8-16); Aspartate Amino Transferase 21 U/L (14-36); Bilirubin,Total 0.5 mg/dL (0.2-1.3); Blood Urea Nitrogen 16 mg/dL (7-17); Calcium 8.5 mg/dL (8.4-10.2); Carbon Dioxide 27 mmol/L (22-30); Chloride 101 mmol/L (98-107); Estimated Glomerular Filt Rate > 60; Glucose 163 mg/dL (65-110); Potassium 3.3 mmol/L (3.4-5.0); Sodium 134 mmol/L (137-145)
[2021-12-20 20:34] LABS: Iron 35 ug/dL (37-170)
[2021-12-20 20:45] LABS: Percent Iron Saturation 15 % (20-50)
== END 2021-12-20 15:35 | disposition home or self-care (01) ==
PROVIDERS: PCP Family Medicine; Visit Provider Nurse Practitioner Gerontology
DX: D64.9 Anemia, unspecified (principal)
CPT/HCPCS: 36415; 80053; 82607; 83540; 83550

== ENCOUNTER 2022-01-04 17:01 | Emergency (ER) | payer OTHER, SELFPAY ==
--- NOTE | ~2022-01-04 | XR_ITS ---
EXAMINATION: XR hip LT 2V w AP pelvis DATE: 01/04/2022 18:09 INDICATION: Pelvis injury. TECHNIQUE: An anteroposterior pelvis and 2 views of left hip were obtained. COMPARISON: None. FINDINGS: There is a comminuted intertrochanteric fracture of proximal left femur status post open re duction internal fixation with antegrade intramedullary al, 2 femoral head/neck screws, and distal i nterlocking screw. The main distal fracture fragment demonstrates near-anatomic alignment. Surgical c lips overlying the pelvis may be from hernia repair. There is mild osteoarthritis of the hips. There is severe lumbar spondylosis. IMPRESSION: 1. Comminuted fracture of proximal left femur status post open reduction internal fixation. 2. Mild osteoarthritis of the hips. Reviewed, dictated and finalized at location A. IMPRESSION: 1. Comminuted fracture of proximal left femur status post open reduction customer experience intern al fixation. 2. Mild osteoarthritis of the hips.
--- NOTE | ~2022-01-04 | XR_ITS ---
EXAMINATION: XR wrist LT min 3V DATE: 01/04/2022 18:09 INDICATION: Left wrist injury. Fall. TECHNIQUE: 4 views of left wrist were obtained. COMPARISON: Left wrist radiographs 03/04/2011 FINDINGS: There is an old healed fracture of distal left radius. The distal articular surface demonst rates 16 degrees dorsal angulation. No acute fracture. There is moderate osteoarthritis of triscaphe joint and severe osteoarthritis of first carpometacarpal joint. There is moderate osteoarthritis of f irst interphalangeal joint. IMPRESSION: 1. Polyarticular osteoarthritis. Reviewed, dictated and finalized at location A.
--- NOTE | ~2022-01-04 | XR_ITS ---
EXAMINATION: XR knee LT 3V DATE: 01/04/2022 18:08 INDICATION: Left knee pain. Fall. TECHNIQUE: 3 views of left knee were obtained. COMPARISON: Left knee radiographs 10/26/2020 FINDINGS: Bone alignment is normal. No fracture. There is mild tricompartmental osteoarthritis. No kn ee joint effusion. IMPRESSION: 1. Mild left knee osteoarthritis. Reviewed, dictated and finalized at location A.
--- NOTE | ~2022-01-04 | CT_ITS ---
EXAMINATION: CT brain wo con DATE: 01/04/2022 18:12 INDICATION: Fall. TECHNIQUE: Computed tomography (CT) of the head was performed without intravenous contrast. The mA wa s adjusted according to patient size. Iterative reconstruction technique was employed. The dose-lengt h product was 529.67 mGy-cm. COMPARISON: Head CT 06/03/2021 FINDINGS: There are old infarcts in the bilateral basal ganglia. There are scattered areas of low att enuation in the cerebral white matter. There is no intracranial hemorrhage, acute infarction, or abno rmal intracranial mass lesion. The ventricles are normal in size. There are likely changes of ocular lens replacement surgeries. There is mild mucosal thickening in the paranasal sinuses. The mastoid ai r cells are normal. IMPRESSION: 1. Old infarcts in the bilateral basal ganglia. 2. Worsened extensive nonspecific cerebral white matter disease, which likely represents chronic smal l vessel ischemic disease. Reviewed, dictated and finalized at location A. IMPRESSION: 1. Old infarcts in the bilateral basal ganglia. 2. Worsened extensive nonspecific cerebral white matter disease, which likely r epresents chronic small vessel ischemic disease.
[2022-01-04 17:02] VITALS: BP 179/51; PULSE 64; RESP 18; TEMP 36.2; O2SAT 98
--- NOTE | 2022-01-04 18:17 | ED.FALL ---
HPI - Fall General Chief Complaint: Fall Stated Complaint: fell, left leg injury, recent surgery Time Seen by Provider: 01/04/22 17:29 Source: patient and family History of Present Illness HPI Narrative: Patient presents with a fall. Patient had a recent ORIF for a femur fracture at [facility] on November 23 is doing home PT and OT and is recovering well. Today she was using her walker to get to the restroom she turned to answered her daughter's question she lost her balance and fell onto her left hip. They monitor symptoms throughout the day PT came to evaluate the patient and she was having a second amount of pain during the exercise prickly on her left knee. Her pain was achy, constant, worse with moving the joint, radiates up into her hip. She was encouraged to go to the ER for further evaluation. She denies striking her head or any loss of consciousness denies any nausea vomiting or diaphoresis. She denies any prodrome prior to the fall such as chest pain, shortness of breath, lightheadedness, dizziness. Related Data Home Medications Medication Instructions Recorded Confirmed omega-3 fatty acids 1,000 mg 2,000 mg PO DAILY cap 01/13/21 11/17/21 capsule cetirizine 10 mg tablet 10 mg PO DAILY PRN 04/13/21 11/17/21 insulin glargine 100 unit/mL (3 5 unit SUBCUT DAILY ml 12/20/21 mL) subcutaneous pen Allergies Allergy/AdvReac Type Severity Reaction Status Date / Time codeine Allergy Unknown hives Verified 12/20/21 14:28 gabapentin Allergy Unknown rash Verified 12/20/21 14:28 meperidine Allergy Unknown hives Verified 12/20/21 14:28 Quinolones Allergy Unknown N/V Verified 12/20/21 14:28 Sulfa (Sulfonamide Allergy Unknown Unknown Verified 12/20/21 14:28 Antibiotics) Review of Systems Review of Systems: CONSTITUTIONAL: Denies fever, chills, or sweats. EYES: Denies visual changes, redness, or discharge. ENT: Denies rhinorrhea, congestion, sore throat, or otalgia. CARDIOVASCULAR: Denies chest pain, palpitations, or edema. RESPIRATORY: Denies cough or dyspnea. GASTROINTESTINAL: Denies abdominal pain, nausea, vomiting, or diarrhea. GENITOURINARY: Denies dysuria or hematuria. SKIN: Denies rash or itching. MUSCULOSKELETAL: Denies back pain, or myalgia. NEUROLOGIC: Denies headache, numbness, dizziness, or weakness. PSYCHIATRIC: Denies anxiety or depression. All systems reviewed & are unremarkable except as noted in HPI and below PMFSH Past Medical History Medical History Adult hypothyroidism Atherosclerosis of [place] coronary artery of [place] heart without angina pectoris Atrial fibrillation with RVR Diastolic dysfunction Essential (primary) hypertension Hemoglobin A1c greater than 9.0% over august 2020 History of tobacco abuse Insulin long-term use Lumbar spondylosis Macular degeneration, dry Major depressive disorder, single episode, moderate Mild nonproliferative diabetic retinopathy of both eyes Mitral regurgitation and aortic stenosis Mixed hyperlipidemia Myelolipoma of left adrenal gland AUTUMN (obstructive sleep apnea) (~10/2019) Osteoarthritis of left knee Proteinuria due to type 2 diabetes mellitus Pulmonary HTN Recurrent kidney stones Type 2 diabetes mellitus with diabetic polyneuropathy Surgical History Surgical History History of fusion of cervical spine History of hysterectomy History of lumbar fusion History of tonsillectomy Family History Family History Mother Family history of transient ischemic attacks Family history of diabetes mellitus in first degree relative Patient's mother is Sibling Family history of lymphoma Family history of congestive heart failure, Onset Age: 40 Family history of heart disease in male family member before age 55 Social History Social History (Reviewed 01/04/22 @ 18:19 by [place]
[2022-01-04 18:33] LABS: Basophils Percent Auto 0.4 % (0.2-1.2); Eosinophils Absolute Auto 0.3 K/mm3 (0-0.3); Eosinophils Percent Auto 4.3 % (0-4.4); Hematocrit 35.6 % (37.0-47.0); Immature Granulocyte Absolute 0.02 K/mm3 (0.00-0.031); Immature Granulocyte Percent A 0.3 % (0-0.5); Lymphocytes Absolute Auto 2.23 K/mm3 (0.9-3.2); Lymphocytes Percent Auto 28.7 % (18.3-44.2); Mean Corpuscular HGB Conc 30.9 g/dl (32-36); Mean Corpuscular Hemoglobin 30.9 pg (26-34); Mean Platelet Volume 9.5 fl (7.4-10.4); Monocytes Absolute Auto 0.8 K/mm3 (0.1-0.6); Monocytes Percent Auto 10.8 % (2.6-8.5); Neutrophils Absolute Auto 4.3 K/mm3 (1.3-6.7); Neutrophils Percent Auto 55.5 % (45.5-73.1); Platelet Count Result 386 k/mm3 (150-375); Red Blood Count 3.56 M/mm3 (4.2-5.4); Red Cell Distribution Width 14.7 % (11.5-14.5); White Blood Count 7.8 K/mm3 (4.5-10.0)
[2022-01-04 18:42] LABS: Alanine Aminotransferase 10 U/L (6-35); Albumin Level 3.7 g/dL (3.5-5.1); Alkaline Phosphatase 61 U/L (38-126); Anion Gap 9 mmol/L (8-16); Aspartate Amino Transferase 18 U/L (14-36); Bilirubin,Total 0.3 mg/dL (0.2-1.3); Blood Urea Nitrogen 14 mg/dL (7-17); Calcium 8.6 mg/dL (8.4-10.2); Carbon Dioxide 24 mmol/L (22-30); Chloride 101 mmol/L (98-107); Estimated CRCL calculation 51 ml/min; Estimated Glomerular Filt Rate > 60; Glucose 195 mg/dL (65-110); Sodium 134 mmol/L (137-145)
[2022-01-04 18:47] LABS: INR 1.6; Prothrombin Time 18.8 Seconds (11.1-14.7)
[2022-01-04 18:48] LABS: Partial Thromboplastin Time 35.2 SECONDS (22.3-36.8)
[2022-01-04] MEDS: traMADol HCL (*CRX) 50 MG TABLET PO (19:05)
[2022-01-04 19:18] VITALS: BP 132/78; PULSE 80; RESP 16; TEMP 37.1; O2SAT 98
== END 2022-01-04 19:19 | disposition home or self-care (01) ==
PROVIDERS: Emergency Provider Emergency Medicine; PCP Family Medicine
DX: S79.912A Unspecified injury of left hip, initial encounter (principal); S72.142D Displaced intertrochanteric fracture of left femur, subsequent encounter for closed fracture with routine healing; E11.42 Type 2 diabetes mellitus with diabetic polyneuropathy; E11.3293 Type 2 diabetes mellitus with mild nonproliferative diabetic retinopathy without macular edema, bilateral; E11.29 Type 2 diabetes mellitus with other diabetic kidney complication; R80.9 Proteinuria, unspecified; I25.10 Atherosclerotic heart disease of native coronary artery without angina pectoris; I48.91 Unspecified atrial fibrillation; I10 Essential (primary) hypertension; I08.0 Rheumatic disorders of both mitral and aortic valves; I27.20 Pulmonary hypertension, unspecified; E78.2 Mixed hyperlipidemia; H35.3190 Nonexudative age-related macular degeneration, unspecified eye, stage unspecified; G47.33 Obstructive sleep apnea (adult) (pediatric); F32.1 Major depressive disorder, single episode, moderate; M17.12 Unilateral primary osteoarthritis, left knee; Z98.1 Arthrodesis status; Z87.442 Personal history of urinary calculi; Z79.4 Long term (current) use of insulin; Z79.01 Long term (current) use of anticoagulants; Z79.84 Long term (current) use of oral hypoglycemic drugs; Z87.891 Personal history of nicotine dependence; M19.032 Primary osteoarthritis, left wrist; M16.0 Bilateral primary osteoarthritis of hip; W18.39XA Other fall on same level, initial encounter; X58.XXXD Exposure to other specified factors, subsequent encounter
CPT/HCPCS: 36415; 70450; 73110; 73502; 73562; 80053; 85025; 85610; 85730; 99284; A9270

== ENCOUNTER 2022-02-08 01:01 | Day surgery (SDC) | payer OTHER, SELFPAY ==
[2022-01-19 11:03] VITALS: BMI 29.8
--- NOTE | 2022-02-08 07:36 | WPDANESEPPF ---
Anes - Initial Pre Proc Eval Procedure: Operation Date: 02/08/22 11:15 Proposed Procedures p Esophagogastroduodenoscopy & Colonoscopy - Johny Reyes MD Date/Time: 02/08/22 07:36 Surgeon: Johny Reyes MD Pre Op Diagnosis: occult GI bleed, GERD, Hx of colon polyps Patient Data Age: 81 Gender: F Height: 1.57 m Weight: 74 kg Allergies Allergy/AdvReac Type Severity Reaction Status Date / Time codeine Allergy Unknown hives Verified 02/08/22 09:36 gabapentin Allergy Unknown rash Verified 02/08/22 09:36 meperidine Allergy Unknown hives Verified 02/08/22 09:36 Quinolones Allergy Unknown N/V Verified 02/08/22 09:36 Sulfa (Sulfonamide Allergy Unknown Unknown Verified 02/08/22 09:36 Antibiotics) Home Medications Medication Instructions Recorded Confirmed Type atorvastatin 20 mg tablet 20 mg PO DAILY #90 tabs 11/15/20 01/19/22 Rx cetirizine 10 mg tablet 10 mg PO DAILY 04/13/21 01/19/22 History carvedilol 12.5 mg tablet 12.5 mg PO Q12H #60 tabs 05/19/21 01/19/22 Rx pen needle, diabetic 31 gauge x #100 ea 09/27/21 11/17/21 Rx 3/16 (Advocate Pen Needle) glucose 4 gram chewable tablet 4 g PO Q15M PRN hypoglycemia #10 10/25/21 01/19/22 Rx tabs insulin syringe-needle U-100 1 mL #100 ea 10/25/21 11/17/21 Rx 31 gauge x 5/16 (Sure Comfort Insulin Syringe) blood-glucose meter,continuous #1 ea 10/27/21 11/17/21 Rx (Dexcom G4 Hydro Generation Manager) blood-glucose sensor (Dexcom G6 #3 ea 10/27/21 11/17/21 Rx Sensor device) blood-glucose transmitter (Dexcom #1 ea 10/27/21 11/17/21 Rx G4 Transmitter device) amiodarone 200 mg tablet 200 mg PO DAILY #90 tabs 11/08/21 01/19/22 Rx insulin glargine 100 unit/mL (3 10 unit subcut DAILY 12/20/21 01/19/22 History mL) subcutaneous pen (Lantus Solostar U-100 Insulin) cholecalciferol (vitamin D3) 1,250 1,250 mcg PO WEEKLY #14 caps 12/28/21 01/19/22 Rx mcg (50,000 unit) capsule ferrous sulfate 325 mg (65 mg 325 mg PO DAILY #30 tabs 12/28/21 01/19/22 Rx iron) tablet,delayed release tramadol 50 mg tablet 50 mg PO Q6H PRN pain #90 tabs 01/08/22 01/19/22 Rx trazodone 50 mg tablet 25 mg PO QHS PRN insomnia #30 tabs 01/09/22 01/19/22 Rx omeprazole 40 mg capsule,delayed 40 mg PO DAILY #30 caps 01/10/22 01/19/22 Rx release escitalopram oxalate 10 mg tablet 10 mg PO DAILY 01/19/22 01/19/22 History famotidine 20 mg tablet 20 mg PO DAILY 01/19/22 01/19/22 History furosemide 80 mg tablet 40 mg PO DAILY 01/19/22 01/19/22 History glucagon 3 mg/actuation nasal spray 3 mg intranasal ONCE PRN 01/19/22 01/19/22 History Hypoglycemia potassium chloride 10 mEq 10 meq PO BID 01/19/22 01/19/22 History capsule,extended release pregabalin 75 mg capsule 75 mg PO BID 01/19/22 01/19/22 History rivaroxaban 20 mg tablet (Xarelto) 20 mg PO DAILY 01/19/22 01/19/22 History spironolactone 25 mg tablet 25 mg PO DAILY 01/19/22 01/19/22 History Patient hx anesthesia problems: none Family hx anesthesia problems: none Results Review: All pre-operative results and documents have been reviewed as part of the pre-operative evaluation. [facility] Past Medical History Medical History (Updated 02/08/22 @ 07:37 by Barber Manriquez DO) Adult hypothyroidism Atherosclerosis of [place] coronary artery of [place] heart without angina pectoris Atrial fibrillation with RVR COPD (chronic obstructive pulmonary disease) Diastolic dysfunction Essential (primary) hypertension Hemoglobin A1c greater than 9.0% over august 2020 History of tobacco abuse Hx of adenomatous colonic polyps Insulin long-term use Lumbar spondylosis Macular degeneration, dry Major depressive disorder, single episode, moderate Mild nonproliferative diabetic retinopathy of both eyes Mitral regurgitation and aortic stenosis Mixed hyperlipidemia Myelolipoma of left adrenal gland AUTUMN (obstructive sleep apnea) (~10/2019) Osteoarthritis of left knee Proteinuria due to type 2 diabetes mellitus Pulmonary HTN Recurrent
[2022-02-08 09:42] VITALS: BP 122/51; PULSE 71; RESP 18; TEMP 36.5; O2SAT 98
[2022-02-08] MEDS: LACTATED RINGERS 1,000 ML 150 ML IV CONT (09:55)
--- NOTE | 2022-02-08 10:00 | WPDHPUPDATE1 ---
History and Physical Update Update Date/Time: 02/08/22 10:00 History and Physical has been reviewed, including an updated exam of the patient. There are NO changes in the patient's condition. Risks, benefits, and alternatives have been discussed and questions answered. Patient agrees to proceed with procedure.
[2022-02-08 10:03] LABS: Glucose Point of Care 106 mg/dl (65-105)
[2022-02-08] MEDS: SIMETHICONE ORAL SUSPENSION 20 MG/0.3 ML 30 ML BOTTLE 0.6 ML IRRIGATION (10:43)
[2022-02-08 11:02] VITALS: BP 116/59; PULSE 61; RESP 17; O2SAT 97
--- NOTE | 2022-02-08 11:06 | SUR.OPER ---
EGD START: 1040; END: 1046. COLONOSCOPY START: 1052; END: 1102.
[2022-02-08 11:12] VITALS: BP 123/61; PULSE 62; RESP 16; O2SAT 98
[2022-02-08 11:22] VITALS: BP 123/61; PULSE 62; RESP 16; O2SAT 98
== END 2022-02-08 11:35 | disposition home or self-care (01) ==
PROVIDERS: PCP Family Medicine; Visit Provider Internal Medicine Gastroenterology
PROC: 0DJ08ZZ Inspection of Upper Intestinal Tract, Via Natural or Artificial Opening Endoscopic (ICD-10-PCS; CPT 43235; principal; 2022-02-08 11:15)
DX: K21.9 Gastro-esophageal reflux disease without esophagitis (principal); D12.2 Benign neoplasm of ascending colon; D12.0 Benign neoplasm of cecum; D12.5 Benign neoplasm of sigmoid colon; D13.2 Benign neoplasm of duodenum; E03.9 Hypothyroidism, unspecified; I25.10 Atherosclerotic heart disease of native coronary artery without angina pectoris; I48.20 Chronic atrial fibrillation, unspecified; I10 Essential (primary) hypertension; M47.816 Spondylosis without myelopathy or radiculopathy, lumbar region; F32.A Depression, unspecified; E78.2 Mixed hyperlipidemia; Z79.4 Long term (current) use of insulin; E11.3299 Type 2 diabetes mellitus with mild nonproliferative diabetic retinopathy without macular edema, unspecified eye; I35.2 Nonrheumatic aortic (valve) stenosis with insufficiency; R11.2 Nausea with vomiting, unspecified; R14.0 Abdominal distension (gaseous); R14.2 Eructation; G47.33 Obstructive sleep apnea (adult) (pediatric); D35.00 Benign neoplasm of unspecified adrenal gland; E11.42 Type 2 diabetes mellitus with diabetic polyneuropathy; Z98.1 Arthrodesis status; E11.69 Type 2 diabetes mellitus with other specified complication; I27.20 Pulmonary hypertension, unspecified; Z87.891 Personal history of nicotine dependence; E61.1 Iron deficiency; Z86.010 Personal history of colon polyps; R68.81 Early satiety; K92.1 Melena; K64.8 Other hemorrhoids
CPT/HCPCS: 43251; 45380; 45385; 82948; 88305; 88342; J2704; J7120

== ENCOUNTER 2022-05-25 01:14 | Day surgery (SDC) | payer OTHER, SELFPAY ==
[2022-05-16 14:13] VITALS: BMI 30.2
[2022-05-25 09:31] VITALS: BP 132/55; PULSE 64; RESP 18; TEMP 35.9; O2SAT 95
[2022-05-25] MEDS: LACTATED RINGERS 1,000 ML 150 ML IV CONT (09:38)
[2022-05-25 09:47] LABS: Glucose Point of Care 216 mg/dl (65-105)
--- NOTE | 2022-05-25 10:00 | PM.HPGS ---
History of Present Illness History of Present Illness Consent: Risks, benefits, and alternatives have been discussed and questions answered. Patient agrees to proceed with procedure. Chief complaint: Duodenal Polyp Narrative: Selina Fishman is a 81 year old female Presents for follow-up EGD. 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 Patient presents today for follow-up examination to document complete excision and no additional polyp growth. Patient denies abdominal pain. Her current weight appetite , bowel movements are normal. Patient also has a history of benign colon polyps at that time with a benign tubular adenoma removed. Family history noncontributory. Review of Systems Review of Systems: Review of systems noncontributory. [facility] Past Medical History Medical History Adult hypothyroidism Atherosclerosis of [place] coronary artery of [place] heart without angina pectoris Atrial fibrillation with RVR COPD (chronic obstructive pulmonary disease) Diastolic dysfunction Essential (primary) hypertension Hemoglobin A1c greater than 9.0% over august 2020 History of tobacco abuse Hx of adenomatous colonic polyps Insulin long-term use Lumbar spondylosis Macular degeneration, dry Major depressive disorder, single episode, moderate Mild nonproliferative diabetic retinopathy of both eyes Mitral regurgitation and aortic stenosis Mixed hyperlipidemia Myelolipoma of left adrenal gland AUTUMN (obstructive sleep apnea) (~10/2019) Osteoarthritis of left knee Proteinuria due to type 2 diabetes mellitus Pulmonary HTN Recurrent kidney stones Type 2 diabetes mellitus with diabetic polyneuropathy Surgical History Surgical History History of fusion of cervical spine History of hysterectomy History of lumbar fusion History of tonsillectomy Family History Family History Mother Family history of transient ischemic attacks Family history of diabetes mellitus in first degree relative Patient's mother is Sibling Family history of lymphoma Family history of congestive heart failure, Onset Age: 40 Family history of heart disease in male family member before age 55 Social History Social History (Updated 05/14/22 @ 14:56 by Venus Dahl) Social History: Smoking packs per day: 1 Smoking cigarettes per day: 20.0 Years smoked: 16 Smoking pack-years: 16.00 Smoking status: Former smoker Tobacco type: cigarettes Second hand tobacco smoke exposure: No Smoking end date: 08/19/75 Alcohol intake: never Substance use: never Substance use type: does not use Living arrangements: with family Additional living arrangements comments: Pt lives with her daughter Gender identity (if verbalized by the patient): Female Sexual Orientation (if Verbalized by the Patient): Straight or Heterosexual Spiritual care concerns: No Meds Home Medications and Allergies Home Medications Medication Instructions Recorded Confirmed Type cetirizine 10 mg tablet 10 mg PO DAILY 04/13/21 05/25/22 History pen needle, diabetic 31 gauge x #100 ea 09/27/21 05/25/22 Rx 3/16 (Advocate Pen Needle) glucose 4 gram chewable tablet 4 g PO Q15M PRN hypoglycemia #10 10/25/21 05/25/22 Rx tabs insulin syringe-needle U-100 1 mL #100 ea 10/25/21 05/25/22 Rx 31 gauge x 5/16 (Sure Comfort Insulin Syringe) blood-glucose meter,continuous #1 ea 10/27/21 05/25/22 Rx (Dexcom G4 Aerial Tram Operator) blood-glucose sensor (Dexcom G6 #3 ea 10/27/21 05/25/22 Rx Sensor device) blood-glucose transmitter (Dexcom #1 ea 10/27/21 05/25/22 Rx G4 Transmitter device) amiodarone 200 mg tablet 200 mg PO DAILY #90 tabs 11/08/21 05/25/22 Rx insulin glargine 100 unit/mL (3 10 unit subcut DAILY 12/20/21
--- NOTE | 2022-05-25 10:05 | WPDANESEPPF ---
Anes - Initial Pre Proc Eval Procedure: Operation Date: 05/25/22 10:30 Proposed Procedures p Esophagogastroduodenoscopy - Johny Reyes MD Date/Time: 05/25/22 10:05 Surgeon: Johny Reyes MD Pre Op Diagnosis: Duodenal Polyp Patient Data Age: 81 Gender: F Height: 1.57 m Weight: 75.4 kg Last Vital Signs Temp 96.7 F L 05/25/22 09:31 Pulse 64 05/25/22 09:31 Resp 18 05/25/22 09:31 BP 132/55 L 05/25/22 09:31 Pulse Ox 95 05/25/22 09:31 O2 Del Method Room Air 05/25/22 09:31 Allergies Allergy/AdvReac Type Severity Reaction Status Date / Time codeine Allergy Unknown hives Verified 05/25/22 09:21 gabapentin Allergy Unknown rash Verified 05/25/22 09:21 meperidine Allergy Unknown hives Verified 05/25/22 09:21 Quinolones Allergy Unknown N/V Verified 05/25/22 09:21 Sulfa (Sulfonamide Allergy Unknown Unknown Verified 05/25/22 09:21 Antibiotics) Home Medications Medication Instructions Recorded Confirmed Type cetirizine 10 mg tablet 10 mg PO DAILY 04/13/21 05/25/22 History pen needle, diabetic 31 gauge x #100 ea 09/27/21 05/25/22 Rx 3/16 (Advocate Pen Needle) glucose 4 gram chewable tablet 4 g PO Q15M PRN hypoglycemia #10 10/25/21 05/25/22 Rx tabs insulin syringe-needle U-100 1 mL #100 ea 10/25/21 05/25/22 Rx 31 gauge x 5/16 (Sure Comfort Insulin Syringe) blood-glucose meter,continuous #1 ea 10/27/21 05/25/22 Rx (Dexcom G4 [place] Headgate Operator) blood-glucose sensor (Dexcom G6 #3 ea 10/27/21 05/25/22 Rx Sensor device) blood-glucose transmitter (Dexcom #1 ea 10/27/21 05/25/22 Rx G4 Transmitter device) amiodarone 200 mg tablet 200 mg PO DAILY #90 tabs 11/08/21 05/25/22 Rx insulin glargine 100 unit/mL (3 10 unit subcut DAILY 12/20/21 05/25/22 History mL) subcutaneous pen (Lantus Solostar U-100 Insulin) tramadol 50 mg tablet 50 mg PO Q6H PRN pain #90 tabs 01/08/22 05/25/22 Rx trazodone 50 mg tablet 25 mg PO QHS PRN insomnia #30 tabs 01/09/22 05/25/22 Rx famotidine 20 mg tablet 20 mg PO DAILY 01/19/22 05/25/22 History glucagon 3 mg/actuation nasal spray 3 mg intranasal ONCE PRN 01/19/22 05/25/22 History Hypoglycemia pregabalin 75 mg capsule 75 mg PO BID 01/19/22 05/25/22 History rivaroxaban 20 mg tablet (Xarelto) 20 mg PO DAILY 01/19/22 05/25/22 History furosemide 80 mg tablet See Rx Instructions .Route 03/19/22 05/25/22 Rx .COMPLEX #45 tabs spironolactone 25 mg tablet See Rx Instructions .Route 03/19/22 05/25/22 Rx .COMPLEX #90 tabs omeprazole 40 mg capsule,delayed 40 mg PO DAILY #30 caps 04/04/22 05/25/22 Rx release carvedilol 12.5 mg tablet See Rx Instructions .Route 04/17/22 05/25/22 Rx .COMPLEX #180 tabs ferrous sulfate 325 mg (65 mg See Rx Instructions .Route 04/30/22 05/25/22 Rx iron) tablet .COMPLEX #30 tabs atorvastatin 20 mg tablet 20 mg PO DAILY #90 tabs 05/04/22 05/25/22 Rx cholecalciferol (vitamin D3) 1,250 See Rx Instructions .Route 05/20/22 05/25/22 Rx mcg (50,000 unit) capsule .COMPLEX #14 caps potassium chloride 10 mEq See Rx Instructions .Route 05/20/22 05/25/22 Rx capsule,extended release .COMPLEX #120 caps escitalopram oxalate 10 mg tablet See Rx Instructions .Route 05/21/22 05/25/22 Rx .COMPLEX #90 tabs Laboratory Tests 05/25/22 09:42 POC Capillary Glucose 216 mg/dl H mg/dl (65-105) Patient hx anesthesia problems: none Family hx anesthesia problems: none Results Review: All pre-operative results and documents have been reviewed as part of the pre-operative evaluation. PMFSH Past Medical History Medical History Adult hypothyroidism Atherosclerosis of [place] coronary artery of [place] heart without angina pectoris Atrial fibrillation with RVR COPD (chronic obstructive pulmonary disease) Diastolic dysfunction Essential (primary) hypertension Hemoglobin A1c greater than 9.0% over august 2020 History of tobacco abuse Hx of adenomatous colonic
[2022-05-25 10:26] VITALS: BP 137/76; PULSE 81; RESP 25; O2SAT 96
[2022-05-25 10:36] VITALS: BP 98/67; PULSE 64; RESP 25; O2SAT 96
[2022-05-25 10:46] VITALS: BP 143/63; PULSE 64; RESP 25; O2SAT 97
[2022-05-25 10:54] LABS: Glucose Point of Care 191 mg/dl (65-105)
== END 2022-05-25 11:04 | disposition home or self-care (01) ==
PROVIDERS: PCP Family Medicine; Visit Provider Internal Medicine Gastroenterology
PROC: 0DJ08ZZ Inspection of Upper Intestinal Tract, Via Natural or Artificial Opening Endoscopic (ICD-10-PCS; CPT 43235; principal; 2022-05-25 10:30)
DX: Z09 Encounter for follow-up examination after completed treatment for conditions other than malignant neoplasm (principal); Z86.012 Personal history of benign carcinoid tumor; Z98.1 Arthrodesis status; I27.20 Pulmonary hypertension, unspecified; Z86.010 Personal history of colon polyps; E11.42 Type 2 diabetes mellitus with diabetic polyneuropathy; G47.33 Obstructive sleep apnea (adult) (pediatric); E78.2 Mixed hyperlipidemia; J44.9 Chronic obstructive pulmonary disease, unspecified; M19.90 Unspecified osteoarthritis, unspecified site; I70.0 Atherosclerosis of aorta; E11.3293 Type 2 diabetes mellitus with mild nonproliferative diabetic retinopathy without macular edema, bilateral; E03.9 Hypothyroidism, unspecified; I25.10 Atherosclerotic heart disease of native coronary artery without angina pectoris; I10 Essential (primary) hypertension; I48.20 Chronic atrial fibrillation, unspecified; F32.9 Major depressive disorder, single episode, unspecified; I34.0 Nonrheumatic mitral (valve) insufficiency; Z87.891 Personal history of nicotine dependence; Z79.01 Long term (current) use of anticoagulants; Z79.4 Long term (current) use of insulin; E78.5 Hyperlipidemia, unspecified; I44.7 Left bundle-branch block, unspecified; E66.9 Obesity, unspecified; Z68.30 Body mass index [BMI] 30.0-30.9, adult
CPT/HCPCS: 43235; 82948; J2704; J7120